=== PATIENT | female | born 2000 | race Caucasian/White ===

== ENCOUNTER 2024-11-29 08:03 | Emergency (ER) | payer BC, SELFPAY ==
[2024-11-29 08:10] VITALS: BP 146/82; PULSE 103; RESP 22; TEMP 37.4; O2SAT 99; BMI 29.1
--- NOTE | 2024-11-29 08:21 | CRLHL7_ITS ---
For Patients: As a result of the Century Cures Act, medical imaging exams and procedure reports are released immediately into your electronic medical record. You may view this report before your referring provider. If you have questions, please contact your health care provider. INDICATION: Right flank pain TECHNIQUE: CT abdomen and pelvis acquired with 85 cc Isovue 370 IV contrast. COMPARISON: None. FINDINGS: Lower chest: Unremarkable. Liver: Unremarkable. Gallbladder and bile ducts: Cholecystectomy. Pancreas: Unremarkable. Spleen: Subcentimeter hypodense lesion in the spleen (2/24), which may represent small hemangioma or cyst. Adrenal glands: Unremarkable. Kidneys: Unremarkable. Specifically no evidence of hydronephrosis or nephrolithiasis. GI tract: No obstruction. No significant bowel wall thickening. Liquid stool throughout the colon. Normal appendix. Vasculature: Abdominal aorta is normal in caliber. Mesenteric arteries are patent. Lymph nodes: No lymphadenopathy. Peritoneum/Abdominal Wall: Tiny fat containing umbilical hernia. Pelvis: Left ovarian cystic lesion measuring 6.5 x 3.2 x 4.8 centimeters (2/137, 4/54). Bones: Straightening of normal lumbar lordosis. IMPRESSION: Liquid stool throughout the colon can be seen with diarrhea. No evidence of bowel wall thickening to suggest inflammation. Left ovarian cystic lesion. Consider further evaluation with pelvic ultrasound. Please note that all CT scans at this facility use dose modulation, iterative reconstruction, and/or weight-based dosing when appropriate to reduce radiation dose to as low as reasonably achievable. Dictated by Maricruz Bustamante MD @ 11/29/2024 9:20:39 AM (Electronically Signed)
--- NOTE | 2024-11-29 08:23 | ED_ITS ---
HPI - General Adult General Chief complaint: Abdominal Pain Stated complaint: Abdominal/back pain Time Seen by Provider: 11/29/24 08:04 History of Present Illness HPI narrative: This 24-year-old female comes in with severe right flank pain and right-sided abdominal pain that began over the last 12 hours or so. She states that it comes and goes. She states that she does feel some pain going down her leg at times. She is in significant distress. She does not report any recent stren uous activity or injury event. She does not have any history of kidney stones. Related Data Home Medications ?Medication ?Instructions ?Recorded ?Confirmed etonogestrel 68 mg subdermal 1 implant subdermal ONCE 11/25/24 11/25/24 implant (Nexplanon) Previous Rx's ?Medication ?Instructions ?Recorded tranexamic acid 650 mg tablet 1,300 mg (2 x 650 mg) PO TID #30 11/25/24 tabs cyclobenzaprine 10 mg tablet 10 mg PO TID #15 tabs 11/29/24 ketorolac 10 mg tablet 10 mg PO Q8H 5 days #15 tabs 11/29/24 methylprednisolone 4 mg tablets in See Rx Instructions PO .COMPLEX 11/29/24 a dose pack (Medrol (Valdo)) #21 ea Allergies Allergy/AdvReac Type Severity Reaction Status Date / Time No Known Allergies Allergy Unknown Verified 11/29/24 09:28 Review of Systems Status of ROS: Reports: 10 or more systems reviewed and unremarkable except as noted in History and below Narrative: Constitutional: No fevers, no weight gain or loss. Eyes: No discharge. No vision changes. HENT: No congestion, no sore throat, no ear pain. Cardiovascular: No chest pain, no palpitations. Respiratory: No shortness of breath, no wheezes, no cough. Gastrointestinal: No vomiting, no diarrhea. Genitourinary: No dysuria, no hematuria. Musculoskeletal: Normal range of motion. Skin: No rashes, no pruritis. Neurological: No dizziness, weakness, sensory change, speech change. Endo/Heme/Allergies: No bruising or bleeding. No polydipsia. Pysch: no suicidality, no anxiety, no insomnia. All other systems reviewed and are negative. [facility] Medical History (Updated 11/29/24 @ 10:25 by Salvador Rosen MD) Encounter for pre-operative examination ?Z01.818 - Encounter for other preprocedural examination (ICD-10) Surgical History (Updated 08/12/22 @ 21:10 by Maxine Botello) Status post laparoscopic cholecystectomy ?Z90.49 - Acquired absence of other specified parts of digestive tract (ICD- 10) Family History (Updated 08/18/22 @ 08:37 by Alexa Wing MD) Mother Diabetes Social History (Updated 03/30/24 @ 09:17 by Sangita Lloyd~[facility] [address], [facility] [address]) Narrative: Does not drink alcohol Does not have regular exercise regimen Highschool student, single Non-smoker What is your current living situation?: I presently have a place to live Problems where you live: no known problems In the past 12 months, utilities in danger of being shut off: no In past 12 months, lack of transportation kept you from medical appts, meetings, work, or getting things needed for daily living: no In the past 12 mos, have been you worried that your food would run out before you had money to buy more?: never true In the past 12 mos, the food you bought just didn't last and you didn't have mon ey to buy more?: never true Smoking Status: Never smoker How often do you have a drink containing alcohol: monthly or less AUDIT-C Alcohol total score: 1 Non-prescribed substance use: denies use How often does anyone, including family, friends and others, physically hurt you : never How often does anyone, including family, friends and others, insult or talk down to you: never How often does anyone, including family, friends and others, threaten you with harm: never How often does anyone, including family, friends and others, scream or curse at you: never Exam Narrative: Exam Narrative: Constitutional: Well-developed, well-nourished. HEENT: Normocephalic, atraumatic. Neck: Normal range of motion. Nontender. Supple. Heart: Regular. No murmurs. Normal rate. Intact distal pulses. Lungs: Clear to auscultation. No chest discomfort. No wheezes, rhonchi, or rales. Abdomen: Normal bowel sounds. No rebound tenderness. Pain in the right flank and right abdomen. Genitalia: Deferred. Back: No midline tenderness. Normal range of motion. Extremities: Normal range of motion. No injury. Skin: Intact. No rash. Warm. No erythema or pallor. Neurologic: No altered sensation. No weakness. Alert and oriented. Psychiatric: No suicidality. No anxiety or depression. No insomnia. Nursing notes and vitals signs are reviewed. Const: Vital Signs, click to edit/add: Vital Signs - 24 hr 11/29/24 08:10 Temperature 99.4 F Pulse Rate [Pulse Oximeter] 103 H Respiratory Rate 22 Blood Pressure [Ri t Upper Arm] 146/82 H Pulse Oximetry 99 Course Vital Signs Vital signs: Initial Vital Signs Temperature 99.4 F 11/29/24 08:10 Temperature Source Temporal Artery Scan 11/29/24 08:10 Pulse Rate 103 H 11/29/24 08:10 Respiratory Rate 22 11/29/24 08:10 Blood Pressure 146/82 H 11/29/24 08:10 Blood Pressure Mean 103 11/29/24 08:10 Pulse Oximetry 99 11/29/24 08:10 Vital Signs Temperature 99.4 F 11/29/24 08:10 Pulse Rate 103 H 11/29/24 08:10 Respiratory Rate 22 11/29/24 08:10 Blood Pressure 146/82 H 11/29/24 08:10 Pulse Oximetry 99 11/29/24 08:10 Temperature 99.4 F 11/29/24 08:10 Pulse Rate 103 H 11/29/24 08:10 Respiratory Rate 22 11/29/24 08:10 Blood Pressure 146/82 H 11/29/24 08:10 Pulse Oximetry 99 11/29/24 08:10 Medications Administered Medications: Discontinued Medications Generic Name Dose Route Start Last Admin Trade Name Freq PRN Reason Stop Dose Admin Ketorolac Tromethamine 30 mg 11/29/24 08:21 11/29/24 08:37 Ketorolac 30 Mg/Ml Inj IVP 11/29/24 08:22 30 mg ONCE ONE Administration Medical Decision Making MDM Narrative Medical decision making narrative: This 24-year-old female comes in with severe right flank pain which she states seemed to lock up in a spasm and pain radiated down part way into her right leg. She arrives here with normal vital signs. She does not report any recent injury event or strenuous activity. 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 She had an IV placed and received Toradol which brought great relief to her symptoms. CT scan of the abdomen and pelvis is obtained and returned with no findings to explain her symptoms. It does seem more likely that this is muscle spasm and possibly nerve impingement. She is okay to be discharged home. I did provide prescriptions for Toradol, Flexeril, and Medrol Dosepak. I recommended a follow-up with our spine clinic if needed. A return to work note is also provided. Lab Data Labs: Lab Results 11/29/24 11/29/24 Range/Units 08:30 08:45 WBC 11.66 H (4.50-11.00) K/uL RBC 4.43 (4.00-5.20) m/uL Hgb 13.0 (12.0-16.0) gm/dL Hct 39.9 (33.0-51.0) % MCV 90 (80-100) fL MCH 29 (26-34) pg MCHC 33 (32-36) gm/dL RDW Coeff of Zane 13.2 (11.5-15.5) % Plt Count 250 (140-440) K/uL Neut % (Auto) 62.2 (42.0-72.0) % Lymph % (Auto) 28.2 (20-44) % [place] % (Auto) 7.5 (0.0-11.0) % Eos % (Auto) 1.5 (0.0-7.0) % Baso % (Auto) 0.3 (0.0-3.0) % Neut # (Auto) 7.30 H (1.7-7.0) K/uL Lymph # (Auto) 3.30 H (0.90-2.90) K/uL [place] # (Auto) 0.90 (0.00-0.90) K/UL Eos # (Auto) 0.20 (0.00-0.50) K/uL Baso # (Auto) 0.00 (0.00-0.30) K/uL Abs Immat Gran (auto) 0.00 (0.00-0.30) K/uL Imm/Tot Granulo (auto) 0.3 % Sodium 139 (135-149) mmol/L Potassium 3.8 (3.6-5.1) mmol/L Chloride 105 (96-114) mmol/L Carbon Dioxide 26 (20-32) mmol/L Anion Gap 8 (7-15) mEq/L BUN 7 (5-24) mg/dL Creatinine 0.6 (0.5-1.5) mg/dL Estimated Creat Clear 128.98 Estimated GFR 128 ml/min Glucose 96 (60-115) mg/dL Calcium 9.0 (8.4-10.6) mg/dL Urine Color Yellow (Yellow) Urine Appearance Slightly Cloudy A (Clear) Urine pH 6.0 (5.0-8.5) Ur Specific [place] 1.020 (1.000-1.030) Urine Protein Negative (Negative) Urine Glucose (UA) Negative (Negative) Urine Ketones Negative (Negative) Urine Blood 3+ A (Negative) Urine Nitrite Negative (Negative) Urine Bilirubin Negative (Negative) Urine Urobilinogen 0.2 (0.2-1.0) Ur Leukocyte Esterase Negative (Negative) Urine RBC 0-2 (0-2) Urine WBC 0-2 (0-5) Ur Squamous Epith Cells Few (None-Few) Urine Bacteria None (None) Imaging Data CT scan - abdomen: Radiologist's impression: Liquid stool throughout the colon can be seen with diarrhea. No evidence of bowel wall thickening to suggest inflammation. Left ovarian cystic lesion. Consider further evaluation with pelvic ultrasound. Discharge Plan Discharge Clinical Impression: Back pain Patient Disposition: Home, Self-Care Condition: Improved Additional Instructions: Take medication as needed and indicated. Increase activity as tolerated. Follow-up with spine clinic for ongoing management as needed. Call [phone] for appointment. Return if worsening. Prescriptions: New cyclobenzaprine 10 mg tablet 10 mg PO TID Qty: 15 0RF ketorolac 10 mg tablet 10 mg PO Q8H 5 Days Qty: 15 0RF methylprednisolone [Medrol (Valdo)] 4 mg tablets,dose pack See Rx Instructions .ROUTE .COMPLEX Qty: 21 0RF Rx Instructions: orally per package directions No Action Nexplanon 68 mg implant 1 implant subdermal ONCE Rx Instructions: as a single dose tranexamic acid 650 mg tablet 1,300 mg PO TID Qty: 30 1RF Rx Instructions: Take 2 tablets, 3x per day for up to 5 days Follow Up/Referrals: Alexa Wing MD [Primary Care Provider] - Stand Alone Forms: [facility] Info Instructions
[2024-11-29] MEDS: KETOROLAC 30 MG/ML inj IVP (08:37)
[2024-11-29 08:49] LABS: Hematocrit 39.9 % (33.0-51.0); Lymphocytes Percent Auto 28.2 % (20-44); Mean Corpuscular HGB Conc 33 gm/dL (32-36); Mean Corpuscular Hemoglobin 29 pg (26-34); Mean Corpuscular Volume 90 fL (80-100); Monocytes Percent Auto 7.5 % (0.0-11.0); Neutrophils Percent Auto 62.2 % (42.0-72.0); Platelet Count* 250 K/uL (140-440); RDW Coefficient of Variation % 13.2 % (11.5-15.5); Red Blood Count 4.43 m/uL (4.00-5.20); White Blood Count* 11.66 K/uL (4.50-11.00)
[2024-11-29 08:50] LABS: Basophils Percent Auto 0.3 % (0.0-3.0); Eosinophils Percent Auto 1.5 % (0.0-7.0); Immature Granulocytes Pct Auto 0.3 %
[2024-11-29 08:53] LABS: Appearance Urine Slightly Cloudy (Clear); Bilirubin Urine Negative (Negative); Blood Urine 3+ (Negative); Color Urine Yellow (Yellow); Glucose Urine Negative (Negative); Ketones Urine Negative (Negative); Leukocyte Esterase Urine Negative (Negative); Nitrite Urine Negative (Negative); Protein Urine Negative (Negative); Urobilinogen Urine 0.2 (0.2-1.0)
[2024-11-29 09:01] LABS: RBC Urine 0-2 (0-2); Squamous Epithelial Cell Urine Few (None-Few); WBC Urine 0-2 (0-5)
[2024-11-29 09:14] LABS: Slide Review Reflex No
[2024-11-29 09:21] LABS: Chloride* 105 mmol/L (96-114); Potassium* 3.8 mmol/L (3.6-5.1); Sodium* 139 mmol/L (135-149)
[2024-11-29 09:23] LABS: Creatinine* 0.6 mg/dL (0.5-1.5); Est. Creatinine Clearance* 128.98; Estimated Glomerular Filt Rate 128 ml/min
[2024-11-29 09:24] LABS: Anion Gap 8 mEq/L (7-15); Blood Urea Nitrogen* 7 mg/dL (5-24); Carbon Dioxide* 26 mmol/L (20-32); Glucose* 96 mg/dL (60-115)
== END 2024-11-29 10:36 | disposition home or self-care (01) ==
PROVIDERS: Emergency Provider Emergency Medicine Emergency Medical Services; PCP Family Medicine
DX: M54.50 Low back pain, unspecified (principal)
CPT/HCPCS: 36415; 74177; 80048; 81001; 85025; 96374; 99283; 99284; J1885; Q9967